=== PATIENT | male | born 1950 | race Caucasian/White ===

== ENCOUNTER 2016-10-21 11:29 | Day surgery (SDC) | payer BC ==
[2016-10-18 09:10] LABS: HEMOGLOBIN 11.5 g/dL (13.6-17.8)
[2016-10-18 09:23] LABS: CALCIUM, SERUM 9.5 MG/DL (8.5-10.4); CHLORIDE, SERUM 105 MMOL/L (96-112); CO2 (CARBON DIOXIDE) 26 MMOL/L (24-34); CREATININE 1.12 MG/DL (0.70-1.30); GFR AFRICAN AMERICAN 79 ML/MIN (>=60); GFR NON AFRICAN AMERICAN 69 ML/MIN (>=60); GLUCOSE, SERUM 159 MG/DL (60-99); POTASSIUM, SERUM 4.3 MMOL/L (3.5-5.3); SODIUM, SERUM 139 MMOL/L (135-148)
[2016-10-18 09:24] LABS: BUN (BLOOD UREA NITROGEN) 27 MG/DL (6-23)
--- NOTE | ~2016-10-21 | OP ---
Record Of Operation [facility] [address] [place]. [address] NAME: COURTNEY QUINN : 52 STATUS : [facility] UNIT#: [id number] AGE: 66 ADM/REG DATE : 10/21/16 MR#: [id number] REPORT SERV DATE: 10/24/16 DICTATED BY: RINA DELACRUZ DATE: 10/21/16 REPORT STATUS : Draft TRANSCRIBED BY: MODL DATE: 10/21/16 DATE OF PROCEDURE: 10/21/2016 PREOPERATIVE DIAGNOSIS: Left shoulder rotator cuff tear. POSTOPERATIVE DIAGNOSIS: Left shoulder rotator cuff tear, supraspinatus and infraspinatus biceps tendon tear and avulsion, type 1 anterior labral tear, superior posterior subacromial impingement, distal clavicle AC joint arthrosis. PROCEDURES: Left shoulder arthroscopy with debridement of superior posterior labral tear; debridement of biceps tendon; avulsion of superior labrum; partial synovectomy; subacromial decompression; distal clavicle resection; mini open rotator cuff repair. SURGEON: Rina Delacruz M.D. MUSEUM LIBRARIAN: Charan Stroud. ANESTHESIA: General anesthetic. ESTIMATED BLOOD LOSS: 25 mL. FLUID: 1100 mL crystalloid. TOURNIQUET TIME: Zero. DRAINS: None. COMPLICATIONS: None. INDICATION: A 66-year-old patient presented to the office with acute left shoulder pain. Radiographs were unremarkable. MRI scan indicated a large rotator cuff tear. He was apprised of diagnosis and recommended treatment options for operative treatment. He understood the possible risks and complications and agreed to proceed. He was identified in the preop holding area. His upper extremities marked with YES. DESCRIPTION OF PROCEDURE: He was then taken to the operative suite and placed in a supine position on the operative table. General anesthetic was successfully administered. The patient's left upper extremity was then prepped and draped to expose the arm circumferentially. A time-out was called. He was identified, correct operative extremity identified, verification of antibiotic Ancef 2 g administration. A needle was then placed into the knee joint posteriorly. It was infiltrated with 30 mL of fluid. Stab incision was made, the arthroscope was introduced posteriorly. An anterior portal established under needle localization and clear cannula, and a stab incision was made with an 11 scalpel blade. The patient had a generalized synovitis debrided using a shaver. He had a large rotator cuff tear. Supraspinatus, infraspinatus. Biceps tendon was avulsed and was retracted. Subscapularis was intact. Glenohumeral joint surfaces were unremarkable. He Record Of Operation [facility] [address] [facility] [address] NAME: COURTNEY QUINN : 52 STATUS : [facility] UNIT#: [id number] AGE: 66 ADM/REG DATE : 10/21/16 MR#: [id number] REPORT SERV DATE: 10/24/16 DICTATED BY: RINA DELACRUZ DATE: 10/21/16 REPORT STATUS : Draft TRANSCRIBED BY: AMARIS DATE: 10/21/16 had a type 1 labral tear from anterior to posterior superiorly which was debrided using a shaver. The teres minor was intact. The arthroscope was then withdrawn from the shoulder joint, placed in the subacromial area. A lateral port was established under needle localization given the stab incision and a working portal. A subacromial decompression was then performed using a thermal device and shaver as well as josefina. Distal clavicle resection was also performed again using thermal device and a bur. The rotator cuff was also visualized from the superior surface. The arthroscopic instrumentation was withdrawn from the shoulder joint and a lateral portal was extended both posteriorly and anteriorly approximately 3 cm, incision made through the skin with #15 scalpel blade. Hemostasis was achieved using electrocautery. Anterior deltoid raphae was identified and sharply incised superior to inferior and a double prong retractor were placed. A single prong retractor was also placed and an Urban retractor was utilized. Rotator cuff tear was visualized. It was tagged with an Ethibond suture and mobilized with a periosteal elevator using the tissue from the surrounding bursa. After mobilization of the cuff, it was repaired using two medial convergence sutures with #2 Ethibond. Arthrex BioComposite corkscrew suture anchor FT 5.5 mm then used one anterior and one posterior to accomplish the rotator cuff repair. A singular 0 Vicryl interrupted suture was placed more laterally to collapse remaining gap in the rotator cuff. Prior to rotator cuff repair, the proximal humerus was debrided using a shaver as well fenestration was done using an anchor punch in a crimson duvet technique for tendon healing to the bone. After successful completion of a tendon repair, put through range of motion, noted to be stable. The arthroscope was used to obtain photographs which were all kept within the record from the entire case. The patient then had the suture limbs to anterior and posterior bundles and a lateral row fixation was performed using a biocompatible PushLock suture anchor 3.5, Arthrex x2. Surgical sites cleansed with saline and closed in multiple layer closure with 0 Vicryl running interrupted suture for the deltoid raphae, 2-0 subcutaneous and 3-0 running Monocryl suture running into the anterior and posterior portals were closed using 3-0 buried suture. All the incisions were then approximated using Mastisol, Steri-Strips, Aquacel dressing, and Telfa with Tegaderm dressing were utilized to complete the wound closure. The patient was then placed in a [facility] UltraSling. He was awakened, extubated, transferred to [facility] to the postanesthesia care unit in satisfactory condition having tolerated the procedure well. Sponge and needle counts were correct at the conclusion of the procedure. EC/MODL Rina Delacruz M.D. / [id number] CC: Sunny May M.D.
[~2016-10-21 11:29] MED LIST: ACET500CAP PO; ASA 81 MG; BENICAR20 PO; GLUCPH; MOBIC15 MG PO; PRILO PO; [UNRECOGNIZED DRUG - REMARK]
== END 2016-10-21 23:59 | disposition home or self-care (01) ==
LOC: MSC 11:29
PROVIDERS: Orthopaedic Surgery
PROC: 0LS24ZZ Reposition Left Shoulder Tendon, Percutaneous Endoscopic Approach (ICD-10-PCS; 2016-10-21)
PROC: 0PBB4ZZ Excision of Left Clavicle, Percutaneous Endoscopic Approach (ICD-10-PCS; 2016-10-21)
PROC: 0RBK4ZZ Excision of Left Shoulder Joint, Percutaneous Endoscopic Approach (ICD-10-PCS; 2016-10-21)
PROC: 0LB24ZZ Excision of Left Shoulder Tendon, Percutaneous Endoscopic Approach (ICD-10-PCS; principal; 2016-10-21 13:15)
PROC: 0RNK4ZZ Release Left Shoulder Joint, Percutaneous Endoscopic Approach (ICD-10-PCS; 2016-10-21 13:15)
DX: M75.102 Unspecified rotator cuff tear or rupture of left shoulder, not specified as traumatic (principal)
CPT/HCPCS: 80048; 82962; 85014; 85018; 93005; A9270-GY; C1713; J0690; J2250; J2370; J2405; J2710; J2795; J3010